=== PATIENT | female | born 1985 | race Caucasian/White ===

== ENCOUNTER 2024-02-15 06:14 | Emergency (ER) | payer OTHER, SELFPAY ==
[2024-02-15] VITALS (30 sets, daily range): BP systolic 126–187; BP diastolic 72–112; PULSE 62–86; TEMP 36.7; O2SAT 95–99; BMI 35.5
[2024-02-15 06:58] LABS: Basophils Percent Auto 0.4 % (0.2-2.0); Eosinophils Absolute Auto 0.1 10^3/uL (0.0-0.7); Eosinophils Percent Auto 0.5 % (0.9-7.0); Hematocrit 41.4 % (36.0-48.0); Hemoglobin 13.7 g/dL (12.0-16.0); Immature Granulocytes Abs Auto 0.03 10^3/uL (0.00-0.03); Immature Granulocytes Pct Auto 0.3 % (0.0-0.5); Lymphocytes Absolute Auto 2.3 10^3/uL (1.2-3.8); Mean Corpuscular HGB Conc 33.1 g/dL (29.9-35.2); Mean Corpuscular Hemoglobin 25.9 pg (26.7-34.0); Mean Corpuscular Volume 78.3 fL (81.0-99.0); Mean Platelet Volume 9.9 fL (9.5-13.5); Monocytes Absolute Auto 0.5 10^3/uL (0.3-0.8); Monocytes Percent Auto 4.8 % (1.7-12.0); Neutrophils Absolute Auto 7.6 10^3/uL (1.4-6.5); Platelet Count 394 10^3/uL (150-450); Red Blood Count 5.29 10^6/uL (4.20-5.40); Red Cell Distribution Width 14.5 % (11.0-15.0); White Blood Count 10.5 10^3/uL (4.0-11.0)
--- NOTE | 2024-02-15 07:09 | PC.NURSE ---
Pt presents to ER for chest pain, shortness of breathing, and increased sweating Pt presents back to ER in a wheelchair Pt is visibly shaking and sweaty Pt states she has been to [facility] 3 times in the last 48 hours and has not gotten any better but they keep telling her she is fine Pt staets she has a pain that keeps happening in the center of her chest that shoots through to her back and her upper right shoulder Pt states the back pain remains constant Pt states she has had episodes of almost fainting where her face and fingertips go numb Pt's spouse at bedside states that last night it looked like she was having a stroke so he took her to the ER again Pt hyperctively watching monitor and her vitals afraid of what they will say Pt has a history of HTN and pulmonary HTN and states she has leaky heart valves so is concerned something major is going on with her heart Pt did not tolerate IV start
--- NOTE | 2024-02-15 07:14 | ED_ITS ---
HPI - Chest Pain General Chief Complaint: Chest Pain Stated Complaint: CHEST PAIN Time Seen by Provider: 02/15/24 06:27 Source: patient Mode of arrival: Wheelchair Limitations: no limitations History of Present Illness HPI narrative: This 38-year-old female, smoker, presents for evaluation of intermittent episodes of midsternal chest pain that radiates into her back associated with nausea, vomiting, diaphoresis, dizziness and near syncope. The symptoms have been present for several months but worse for the past 48 hours. The patient's states that he took her to the emergency department 3 times at [facility] in the past 48 hours. She was having chest pain shortness of breath dizziness and at 1 time her face was contorting like she was having a stroke. She was seen and evaluated. The patient states that 1 doctor blew her off and stated that everything was fine and another doctor was concerned about her and set her up for a stress test and other cardiac test. She is supposed to have one of the test at 240 this afternoon. The patient states that she has calcification of her coronary artery. She is not certain which test she had that found this but she was supposed to have a cardiac cath as well. She has been admitted to [facility] in the past but has not had any cardiology follow-up. This morning she was dizzy, sweaty with nausea and vomiting. Her chest pain comes and goes. She also states that she has episodes where her blood pressure shoots up and her pulse shoots up. She has no abdominal pain. She has no lower extremity pain or swelling. She has not had a fever or cough. Related Data Home Medications ?Medication ?Instructions ?Recorded ?Confirmed clonidine HCl 0.1 mg tablet mg 02/15/24 losartan 50 mg tablet mg 02/15/24 metoprolol succinate 100 mg mg PO 02/15/24 tablet,extended release 24 hr Allergies Allergy/AdvReac Type Severity Reaction Status Date / Time No Known Drug Allergies Allergy Verified 02/15/24 06:27 Review of Systems ROS Status of ROS 10 or more systems reviewed and unremark able except as noted in history and below Exam Narrative Exam Narrative: Vital signs and Nursing Notes reviewed: Patient is afebrile with a normal pulse, blood pressure is elevated 144/111, she is not hypoxic with pulse ox of 99% on room air General: Awake, alert, oriented, anxious female sitting up on the stretcher because lying down makes her uncomfortable, no respiratory distress, no active vomiting HEENT: Normocephalic atraumatic, mucous membranes are moist and pink, eyes are clear, normal conjunctiva, vision is grossly intact, posterior pharynx is normal in appearance. Neck: Supple, no thyroid abnormality appreciated Chest: Lungs are clear to auscultation with good air entry, there is no wheezing rhonchi or rales appreciated no accessory muscle use, patient is speaking in complete sentences-no chest wall tenderness to palpation CVS: Regular rate and rhythm S1-S2, no murmurs rubs or gallops, pulses are brisk and equal bilaterally ABD: Soft, nondistended, nontender, no rebound guarding or rigidity, bowel sounds are normal, no pulsatile masses appreciated Extremities: Moving all extremities, no lower extremity tenderness or swelling noted, negative Homans' sign, pulses are brisk and equal bilaterally Skin: Normal in appearance without rash,pallor, petechiae or purpura Neuro: No focal deficits; speech is clear, there is no facial droop, 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, upper and lower extremity strength and sensation is intact, negative pronator drift Constitutional Vital Signs, click to edit/add: Last Vital Signs Temp 98.0 F 02/15/24 06:20 Pulse 86 02/15/24 06:20 Resp 22 H 02/15/24 06:20 BP 144/111 H 02/15/24 06:20 Pulse Ox 99 02/15/24 06:20 O2 Del Method Room Air 02/15/24 06:20 Course Vital Signs Vital signs: Vital Signs Temperature 98.0 F 02/15/24 06:20 Pulse Rate 86 02/15/24 06:20 Respiratory Rate 22 H 02/15/24 06:20 Blood Pressure 144/111 H 02/15/24 06:20 Pulse Oximetry 99 02/15/24 06:20 Oxygen Delivery Method Room Air 02/15/24 06:20 Temperature 98.0 F 02/15/24 06:20 Pulse Rate 86 02/15/24 06:20 Respiratory Rate 22 H 02/15/24 06:20 Blood Pressure 144/111 H 02/15/24 06:20 Pulse Oximetry 99 02/15/24 06:20 Oxygen Delivery Method Room Air 02/15/24 06:20 MDM - Chest Pain Lab Data Labs: Lab Results 02/15/24 Range/Units 06:39 WBC 10.5 (4.0-11.0) 10^3/uL RBC 5.29 (4.20-5.40) 10^6/uL Hgb 13.7 (12.0-16.0) g/dL Hct 41.4 (36.0-48.0) % MCV 78.3 L (81.0-99.0) fL MCH 25.9 L (26.7-34.0) pg MCHC 33.1 (29.9-35.2) g/dL RDW 14.5 (11.0-15.0) % Plt Count 394 (150-450) 10^3/uL MPV 9.9 (9.5-13.5) fL Neut % (Auto) 72.0 (43.0-75.0) % Lymph % (Auto) 22.0 (20.5-60.0) % [place] % (Auto) 4.8 (1.7-12.0) % Eos % (Auto) 0.5 L (0.9-7.0) % Baso % (Auto) 0.4 (0.2-2.0) % Neut # (Auto) 7.6 H (1.4-6.5) 10^3/uL Lymph # (Auto) 2.3 (1.2-3.8) 10^3/uL [place] # (Auto) 0.5 (0.3-0.8) 10^3/uL Eos # (Auto) 0.1 (0.0-0.7) 10^3/uL Baso # (Auto) 0.0 (0.0-0.1) 10^3/uL Abs Immat Gran (auto) 0.03 (0.00-0.03) 10^3/uL Imm/Tot Granulo (auto) 0.3 (0.0-0.5) % ECG Data Attestation: I personally reviewed and interpreted this ECG as follows: (EKG interpretation sinus rhythm at 74 bpm, normal axis, normal intervals, no acute ST segment elevation or T wave inversion) Heart Score History: Moderately Suspicious ECG: Normal Age: <45 years Risk Factors: 1 or 2 Risk Factors Discharge Plan Discharge Chief Complaint: Chest Pain Clinical Impression: Chest pain Patient Disposition: Still a Patient Prescriptions / Home Meds: No Action losartan 50 mg tablet clonidine HCl 0.1 mg tablet metoprolol succinate 100 mg tablet extended release 24 hr PO Print Language: Sinhala Referrals: Luh Marie [employer]ER [Primary Care Provider] - 1 week
[2024-02-15] MEDS: ONDANSETRON PF 4 MG/2 ML VIAL IV (07:22)
[2024-02-15] MEDS: 0.9 % SODIUM CHLORIDE 500 ML IV (07:22)
[2024-02-15 07:29] LABS: Anion Gap 19.9
[2024-02-15 07:35] LABS: Alanine Aminotransferase 22 U/L (14-59); Albumin Globulin Ratio 1.1; Albumin Level 4.1 g/dL (3.4-5.0); Alkaline Phosphatase 76 U/L (46-116); Aspartate Amino Transferase 18 U/L (15-37); BUN Creatinine Ratio 14.1; Bilirubin Total 0.8 mg/dL (0.2-1.0); Calcium 9.3 mg/dL (8.5-10.1); Carbon Dioxide 18.8 mmol/L (21.0-32.0); Chloride 101 mmol/L (98-107); Estimated GFR (African America >60 (>=60); Estimated GFR (Non-African Ame >60 (>=60); Globulin 3.7 g/dL; Glucose 125 mg/dL (74-106); Potassium 3.7 mmol/L (3.5-5.1); Sodium 136 mmol/L (136-145); Thyroid Stimulating Hormone 2.354 uIU/mL (0.358-3.740); Total Protein 7.8 g/dL (6.4-8.2)
--- NOTE | 2024-02-15 07:49 | XR_ITS ---
The [address] [address] Patient Name: CECY SUTHERLAND MRN: [id number] date: 1985 Sex: F Assigned Patient Location: ER Current Patient Location: ER Accession/Order Number: [id number] Exam Date: 02/15/2024 07:55 Report Date: 02/15/2024 08:11 At the request of: ANNA WHITAKER Procedure: XR chest 1V EXAM: XR chest 1V HISTORY: . Chest Pain . COMPARISON: None. TECHNIQUE: Single view of the chest FINDINGS: Heart and vascularity are unremarkable. Lungs are free of focal infiltrates. EKG leads overlie the chest. Grossly no bony abnormality is appreciated. XR/XR chest 1V IMPRESSION: No acute heart or lung disease identified. Electronically authenticated by: CALOS BURKETT Date: 02/15/2024 08:11
[2024-02-15] MEDS: ASPIRIN 81 MG TAB.CHEW 324 MG PO (08:01)
--- NOTE | 2024-02-15 08:22 | ECG_ITS ---
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
[2024-02-15 08:24] LABS: D Dimer 0.19 mg/L FEU (<=0.59)
[2024-02-15 09:53] LABS: Troponin I High Sensitivity <4.0 pg/mL (4.0-51.3)
--- NOTE | 2024-02-15 10:06 | ED_ITS ---
HPI - Chest Pain General Chief Complaint: Chest Pain Stated Complaint: CHEST PAIN Time Seen by Provider: 02/15/24 06:27 Source: patient Mode of arrival: Wheelchair Limitations: no limitations History of Present Illness HPI narrative: 38-year-old female presented to the emergency department and was initially seen by Dr. Rivas and signed out to me after discussing the case with her thoroughly. Please see her full history and physical exam. Related Data Home Medications ?Medication ?Instructions ?Recorded ?Confirmed clonidine HCl 0.1 mg tablet mg 02/15/24 losartan 50 mg tablet mg 02/15/24 metoprolol succinate 100 mg mg PO 02/15/24 tablet,extended release 24 hr Allergies Allergy/AdvReac Type Severity Reaction Status Date / Time No Known Drug Allergies Allergy Verified 02/15/24 06:27 Exam Constitutional Vital Signs, click to edit/add: Last Vital Signs Temp 98.0 F 02/15/24 06:20 Pulse 70 02/15/24 09:20 Resp 22 H 02/15/24 09:20 BP 126/82 02/15/24 09:01 Pulse Ox 97 02/15/24 09:20 O2 Del Method Room Air 02/15/24 06:20 Course Vital Signs Vital signs: Vital Signs Temperature 98.0 F 02/15/24 06:20 Pulse Rate 86 02/15/24 06:20 Respiratory Rate 22 H 02/15/24 06:20 Blood Pressure 144/111 H 02/15/24 06:20 Pulse Oximetry 99 02/15/24 06:20 Oxygen Delivery Method Room Air 02/15/24 06:20 Temperature 98.0 F 02/15/24 06:20 Pulse Rate 70 02/15/24 09:20 Respiratory Rate 22 H 02/15/24 09:20 Blood Pressure 126/82 02/15/24 09:01 Pulse Oximetry 97 02/15/24 09:20 Oxygen Delivery Method Room Air 02/15/24 06:20 MDM - Chest Pain MDM Narrative Medical decision making narrative: Workup here including 2 sets of troponin is negative. We had attempted to obtain her records from the hospital in [place] but they did not send them despite multiple calls. The patient has an echo scheduled for this afternoon and she will keep that appointment. Treatment diagnosis and follow-up were discussed with the patient. Differential Diagnosis Differential diagnosis: Likely pneumothorax, stable angina, unstable angina pectoris, atypical chest pain, st elevation myocardial infarction, costochondritis and chest pain Lab Data Attestation: I reviewed the patient's lab results. Labs: Lab Results 02/15/24 02/15/24 Range/Units 06:39 09:28 WBC 10.5 (4.0-11.0) 10^3/uL RBC 5.29 (4.20-5.40) 10^6/uL Hgb 13.7 (12.0-16.0) g/dL Hct 41.4 (36.0-48.0) % MCV 78.3 L (81.0-99.0) fL MCH 25.9 L (26.7-34.0) pg MCHC 33.1 (29.9-35.2) g/dL RDW 14.5 (11.0-15.0) % Plt Count 394 (150-450) 10^3/uL MPV 9.9 (9.5-13.5) fL Neut % (Auto) 72.0 (43.0-75.0) % Lymph % (Auto) 22.0 (20.5-60.0) % [place] % (Auto) 4.8 (1.7-12.0) % Eos % (Auto) 0.5 L (0.9-7.0) % Baso % (Auto) 0.4 (0.2-2.0) % Neut # (Auto) 7.6 H (1.4-6.5) 10^3/uL Lymph # (Auto) 2.3 (1.2-3.8) 10^3/uL [place] # (Auto) 0.5 (0.3-0.8) 10^3/uL Eos # (Auto) 0.1 (0.0-0.7) 10^3/uL Baso # (Auto) 0.0 (0.0-0.1) 10^3/uL Abs Immat Gran (auto) 0.03 (0.00-0.03) 10^3/uL Imm/Tot Granulo (auto) 0.3 (0.0-0.5) % D-Dimer 0.19 (<=0.59) mg/L FEU Sodium 136 (136-145) mmol/L Potassium 3.7 (3.5-5.1) mmol/L Chloride 101 (98-107) mmol/L Carbon Dioxide 18.8 L (21.0-32.0) mmol/L Anion Gap 19.9 BUN 12.0 (7.0-18.0) mg/dL Creatinine 0.85 (0.55-1.02) mg/dL Est GFR ( Amer) >60 (>=60) Est GFR (Non-Af Amer) >60 (>=60) BUN/Creatinine Ratio 14.1 Glucose 125 H (74-106) mg/dL Calcium 9.3 (8.5-10.1) mg/dL Total Bilirubin 0.8 (0.2-1.0) mg/dL AST 18 (15-37) U/L ALT 22 (14-59) U/L Alkaline Phosphatase 76 (46-116) U/L Troponin I High Sens 4.0 <4.0 L (4.0-51.3) pg/mL Total Protein 7.8 (6.4-8.2) g/dL Albumin 4.1 (3.4-5.0) g/dL Globulin 3.7 g/dL Albumin/Globulin Ratio 1.1 TSH 2.354 (0.358-3.740) uIU/mL Imaging Data Chest x-ray: Radiologist's impression: ITS Impressions Chest X-Ray 02/15/24 07:49 IMPRESSION: No acute heart or lung disease identified. Electronically authenticated by: CALOS BURKETT Date: 02/15/2024 08:11 ECG Data Attestation: I personally reviewed and interpreted this ECG as follows: (EKG on my interpretation shows normal sinus rhythm with a rate of 74 and no acute change.) Heart Score History: Slightly/Non-Suspicious ECG: Normal Age: <45 years Risk Factors: No Risk Factors Troponin: <Normal Limit Total Heart Score Recommendations & Risks:: 0 Discharge Plan Discharge Stand Alone Forms: Portal Instructions Chief Complaint: Chest Pain Clinical Impression: Chest pain Patient Disposition: Home, Self-Care Time of Disposition Decision: 10:05 Condition: Good Mode of Transportation: Private Vehicle Prescriptions / Home Meds: No Action losartan 50 mg tablet clonidine HCl 0.1 mg tablet metoprolol succinate 100 mg tablet extended release 24 hr PO Print Language: Uzbek Instructions: Chest Pain (ED) Referrals: Luh Marie NP [Primary Care Provider] - 1 week
== END 2024-02-15 10:15 | disposition home or self-care (01) ==
PROVIDERS: Emergency Medicine; Emergency Provider Emergency Medicine; PCP Nurse Practitioner Primary Care
DX: R07.9 Chest pain, unspecified (principal)
CPT/HCPCS: 36415; 71045; 80053; 84443; 84484; 85025; 85378; 93005; 96374; 99285; J2405